=== PATIENT | male | born 1955 | race Caucasian/White ===

== ENCOUNTER 2021-01-23 09:24 | Inpatient (IN) | payer BC, SELFPAY ==
[~2021-01-23] VITALS: Ht 172.7 cm; Wt 124.7 kg
[2021-01-23 09:30] VITALS: BP 134/88
--- NOTE | 2021-01-23 09:40 | NUR ---
65 y/o M BIBA in front of yard c/o suicidal ideations. EMS states patient was in [place] having "a few beers" when he had a mechanical fall and struck his head against a brick wall. Patient presents with dry blood to left temporal region; denies any pain to this site. Denies head/neck/back pain, no spinal tenderness noted. GCS 15 patient denies hallucinations or auditory changes; states feeling depressed for "a few months with no plan to kill self." 5150 HOLD by Jane MEDELLIN for danger to self. Per hold, patient reports he "no longer wants to live anymore." Denies a plan. Pt states 2/10 to left ear; noted with partial avulsion to left ear. Seizure and SI precautions in place. PMH: Depression Meds: unknown Sx: cholecystectomy
--- NOTE | 2021-01-23 09:44 | NUR ---
Dr. Lomeli is evaluating patient at bedside
--- NOTE | 2021-01-23 09:48 | NUR ---
Unable to obtain urine sample at this time
--- NOTE | 2021-01-23 10:10 | NUR ---
Dr. Lomeli states to hold off on straight catheter. Urinal at bedside.
--- NOTE | 2021-01-23 10:11 | NUR ---
Blood sample collected, walked to lab and handed to CPT Frank.
--- NOTE | 2021-01-23 10:15 | NUR ---
TDAP consent form signed
--- NOTE | 2021-01-23 10:17 | NUR ---
[facility]
[2021-01-23 10:25] LABS: BASOPHILS # (AUTO) 0.1 K/uL (0.00-0.22); BASOPHILS % (AUTO) 0.6 % (0.0-2.0); HEMATOCRIT 41.8 % (36-52); HEMOGLOBIN 14.5 g/dL (12.0-18.0); LYMPHOCYTES # (AUTO) 0.7 K/uL (2.0-11.5); LYMPHOCYTES % (AUTO) 5.4 % (20.5-51.1); MEAN CORPUSCULAR HEMOGLOBIN 35 pg (27-31); MEAN CORPUSCULAR HGB CONC 35 g/dL (33-37); MEAN CORPUSCULAR VOLUME 101.4 fL (80-94); MONOCYTES % (AUTO) 7.2 % (1.7-9.3); NEUTROPHILS # (AUTO) 11.5 K/uL (1.8-7.7); NEUTROPHILS % (AUTO) 86.8 % (42.2-75.2); PLATELET COUNT (AUTO) 309 K/uL (140-450); RED BLOOD CELL COUNT(AUTO) 4.13 MIL/uL (4.20-6.10); RED CELL DISTRIBUTION WIDTH 14.3 % (11.6-13.7); WHITE BLOOD COUNT (AUTO) 13.3 K/uL (4.8-10.8)
--- NOTE | 2021-01-23 10:27 | NUR ---
Patient returned from CT by juan josé.
[2021-01-23 10:51] LABS: ANION GAP 14.6 (8-16); CREATININE 1.3 mg/dL (0.6-1.3); POTASSIUM 4.6 mmol/L (3.5-5.1)
--- NOTE | 2021-01-23 10:58 | NUR ---
PER ERMD PT FACE AND EARS WAS CLEANED VIA COMMISSIONING EDITOR.
[2021-01-23] MEDS ORDERED: LIDOCAINE MPF 1% 5 ML ONE (10:59)
[2021-01-23] MEDS ORDERED: LIDOCAINE MPF 1% 10 MG/ML VIAL INJ ONE (11:00)
--- NOTE | 2021-01-23 11:45 | NUR ---
Patient cleared for fluids per Dr. jennings. Pt given 2 water cups and encouraged to urinate. Urinal remains at bedside.
--- NOTE | 2021-01-23 13:36 | NUR ---
Patient resting in semi-fowlers with both eyes open. All pt needs met. No distress noted.
[2021-01-23 13:58] LABS: BARBITURATE, URINE NEGATIVE ng/ml (NEG <=200); BENZODIAZEPINE, URINE POSITIVE ng/mL (NEG <=200); CANNABINOID, URINE POSITIVE ng/mL (NEG <=50); COCAINE, URINE NEGATIVE ng/mL (NEG <=300); OPIATE, URINE NEGATIVE ng/mL (NEG <=2000); PHENCYCLIDINE SCREEN,URINE NEGATIVE ng/mL (NEG <=25)
--- NOTE | 2021-01-23 15:30 | NUR ---
Patient wheelchair assisted to restroom for BM.
--- NOTE | 2021-01-23 15:32 | NUR ---
Patient presented laying on the ground in the restroom by toilet. Patient states he slipped from toilet and landed on his rear. Denies any pain, denies falling, denies LOC/head/neck/back pain. Patient assisted back onto wheelchair
--- NOTE | 2021-01-23 15:35 | NUR ---
Patient wheelchair assisted back to bed and provided with diaper and chucks applied to bed. Side rails x 2 for pt safety. All pt needs met at this time.
--- NOTE | 2021-01-23 16:11 | NUR ---
Patient laying on R side with both eyes closed.
[2021-01-23] MEDS ORDERED: VENL37.55 PO (16:39)
--- NOTE | 2021-01-23 17:24 | NUR ---
Wound photos of L ear and above L eye taken and attached onto chart.
[2021-01-23] MEDS ORDERED: ACETAMINOPHEN 325 MG TAB ONE (17:39)
[2021-01-23] MEDS ORDERED: ACETAMINOPHEN 325 MG TAB PO ONE (17:40)
--- NOTE | 2021-01-23 17:41 | NUR ---
Pt states 4/[address] Martinez made aware and orders placed.
[2021-01-23] MEDS ORDERED: ACETAMINOPHEN 325 MG TAB PO PRN (17:45)
[2021-01-23] MEDS ORDERED: POTASSIUM CHLORIDE 10 MEQ TABER PO PRN (17:45)
[2021-01-23] MEDS ORDERED: MAGNESIUM OXIDE 400 MG TAB PO PRN (17:45)
[2021-01-23] MEDS ORDERED: MORPHINE SULFATE 2 MG/ML SYR IVP PRN (17:45)
[2021-01-23] MEDS ORDERED: HYDROcodone/APAP 5/325 MG 1 TAB TAB PO PRN (17:45)
[2021-01-23] MEDS ORDERED: SODIUM PHOS / POTASSIUM PHOS 1 PKT PDR PO PRN (17:45)
[2021-01-23] MEDS ORDERED: ONDANSETRON 4 MG/2 ML VIAL IM/IVP PRN (17:45)
[2021-01-23] MEDS ORDERED: DOCUSATE SODIUM 100 MG GELCAP PO PRN (17:45)
--- NOTE | 2021-01-23 18:05 | NUR ---
Dinner mealtray at bedside. Patient completing meal at this time.
--- NOTE | 2021-01-23 18:11 | NUR ---
Blood sample collected, handed to CPT Ami in lab
--- NOTE | 2021-01-23 18:17 | NUR ---
Patient on video call with psychiatrist.
--- NOTE | 2021-01-23 18:20 | NUR ---
Report given to ALVERTO Luna. Advised patient on iPad with Telepsych, ETA 15-20min.
--- NOTE | 2021-01-23 18:36 | NUR ---
RECEIVED REPORT FROM ED NURSE CELIA. AWAITING PT TRANSFER TO [facility].
[2021-01-23] MEDS: MULTIVITAMIN/MINERALS 1 TAB PO SCH (18:38)
[2021-01-23] MEDS: THIAMINE 100 MG TAB PO SCH (18:39)
[2021-01-23 18:40] LABS: MAGNESIUM 2.3 mg/dL (1.8-2.4); PHOSPHORUS 3.4 mg/dL (2.5-4.9)
[2021-01-23] MEDS: NACL 0.9% 1,000 ML IV SCH ×2 (18:42→22:55)
[2021-01-23] MEDS ORDERED: LORazepam 0.5 MG TAB PO STA (18:47)
[2021-01-23] MEDS ORDERED: LORazepam 0.5 MG TAB PO PRN (18:50)
--- NOTE | 2021-01-23 18:54 | NUR ---
PATIENT TRANSFERRED TO [facility]. PT STABLE. NO S/S OF DISTRESS. SITTER IN DOORWAY. PAINTING TRADES WORKER IN PLACE. IV FLUIDS RUNNING PER MD ORDERS. PATIENT EATING. ALL SAFETY MEASURES IN PLACE.
--- NOTE | 2021-01-23 18:55 | NUR ---
Patient will be admitted to care of Dr. Holcomb. Admited to Telemetry. Will go to room 109A. Belongings list completed. Report to ALVERTO Fuentes.
--- NOTE | 2021-01-23 19:35 | NUR ---
ENDORSED PATIENT TO LIBRARY CLERK TALKING BOOKS NURSE. PT STABLE. NO S/S OF DISTRESS. BREATHING SYMMETRICAL. CALL LIGHT IN REACH. ALL SAFETY MEASURES IN PLACE.
--- NOTE | 2021-01-23 19:36 | NUR ---
RECEIVED ENDORSEMENT FROM AM NURSE. PATIENT RESTING IN BED. NO ACUTE RESPIRATORY DISTRESS AT THIS TIME. WILL ADMIT TO TELE UNIT.
--- NOTE | 2021-01-23 20:00 | NUR ---
ADMITTED FROM ER TO TELEMETRY UNIT WITH CHIEF COMPLAINT OF S/P FALL AND SUICIDAL IDEATION. 65 Y/O Male & COOPERATIVE. AWAKE, ALERT & ORIENTED X2. RESPIRATIONS EVEN AND LABORED. LACERATION APPROXIMATELY 2CM ON LEFT TEMPORAL, INTACT, DRY, AND OPEN TO AIR. PART OF LEFT EAR MISSING WITH DRY BLOOD. PATIENT VERBALIZED INCIDENT HAPPENED A MONTH AGO BUT CANNOT REMEMBER WHAT HAPPENED. INQUIRED IF PATIENT HAS ANY SUICIDAL THOUGHTS. PATIENT VERBALIZED THAT HE HAS SUICIDAL THOUGHTS WITHOUT ANY ACTIVE PLANS. HEAD TO TOE ASSESSMENT DONE WITH CHARGE NURSE AL. PATIENT VERBALIZES HE IS ABLE TO WALK AT HOME, BUT VERBALIZES HE REQUIRES WHEELCHAIR AT THE HOSPITAL DUE TO BILATERAL LOWER EXTREMITY WEAKNESS AND VERBALIZES HE IS WOBBLY WHEN AMBULATING. PATIENT DENIES PAIN 0/10. SR ON TELE WITH INVERTED T. ORIENTED TO CALL LIGHT, BED, PHONE, TELEVISION, BATHROOM, SMOKING POLICY, VISITOR POLICY, PROCEDURES, ID BRACELET ON. BELONGINGS LIST CHECKED.
--- NOTE | 2021-01-23 22:00 | NUR ---
LAYING ON HIS RIGHT SIDE, SLEEPING BUT STILL ANSWERS QUESTIONS WHEN ASK BY NURSE.
[2021-01-24] VITALS: BP 98/51
--- NOTE | 2021-01-24 | NUR ---
ROUNDED ON PATIENT. OBTAINED SCHEDULED VITAL SIGNS. WITHIN NORMAL LIMITS. NO SIGNS AND SYMPTOMS OF ACUTE RESPIRATORY DISTRESS NOTED AT THIS TIME. ALL SAFETY MEASURES IN PLACE. CALL LIGHT WITHIN REACH. WILL CONTINUE TO MONITOR.
--- NOTE | 2021-01-24 01:11 | NUR ---
Patient's Plan of Care was discussed and reviewed with PSYCHOLOGISTS: SHAYY RODRIGUEZ
--- NOTE | 2021-01-24 02:00 | NUR ---
SLEEPING ON HIS LEFT SIDE, RESPIRATION EVEN AND UNLABORED. PUT ON WARM BLANKET.
[2021-01-24 04:00] VITALS: BP 132/64
--- NOTE | 2021-01-24 04:00 | NUR ---
OBTAINED SCHEDULED VITALS SIGNS. VITAL SIGNS WITHIN NORMAL LIMITS. CLEANED AND CHANGED PATIENT WITH MACHINE CEMENTER ASSISTANCE. NO SIGNS AND SYMPTOMS OF ACUTE RESPIRATORY DISTRESS NOTED AT THIS TIME. ALL SAFETY MEASURES IN PLACE. CALL LIGHT WITHIN REACH. WILL CONTINUE TO MONITOR.
[2021-01-24] MEDS: NACL 0.9% 1,000 ML IV SCH (05:05)
--- NOTE | 2021-01-24 06:00 | NUR ---
CHECKED ON PATIENT. PATIENT STABLE AND COMFORTABLE IN BED SLEEPING. NO SIGNS AND SYMPTOMS OF ACUTE RESPIRATORY DISTRESS NOTED AT THIS TIME. ALL SAFETY MEASURES IN PLACE. CALL LIGHT WITHIN REACH. WILL CONTINUE TO MONITOR.
--- NOTE | 2021-01-24 07:00 | NUR ---
ENDORSED TO MORNING NURSE FOR CONTINUITY OF CARE. PATIENT STABLE.
--- NOTE | 2021-01-24 07:40 | NUR ---
RECEIVED REPORT FROM PULP MAKING PLANT OPERATOR NURSE. IV FLUIDS RUNNING PER MD ORDERS. PT STABLE. NO S/S OF DISTRESS. BREATHING SYMMETRICAL. ALL SAFETY MEASURES IN PLACE.
[2021-01-24 08:10] LABS: BASOPHILS % (AUTO) 0.4 % (0.0-2.0); EOSINOPHILS % (AUTO) 0.6 % (0.0-4.0); HEMATOCRIT 36.6 % (36-52); HEMOGLOBIN 12.6 g/dL (12.0-18.0); LYMPHOCYTES % (AUTO) 16.9 % (20.5-51.1); MEAN CORPUSCULAR HEMOGLOBIN 35 pg (27-31); MEAN CORPUSCULAR HGB CONC 34 g/dL (33-37); MEAN CORPUSCULAR VOLUME 102.7 fL (80-94); MONOCYTES # (AUTO) 0.8 K/uL (0.8-1.0); NEUTROPHILS % (AUTO) 69.1 % (42.2-75.2); PLATELET COUNT (AUTO) 235 K/uL (140-450); RED BLOOD CELL COUNT(AUTO) 3.56 MIL/uL (4.20-6.10); RED CELL DISTRIBUTION WIDTH 14.2 % (11.6-13.7); WHITE BLOOD COUNT (AUTO) 5.8 K/uL (4.8-10.8)
[2021-01-24] MEDS: MULTIVITAMIN/MINERALS 1 TAB PO SCH (08:16)
[2021-01-24] MEDS: THIAMINE 100 MG TAB PO SCH (08:16)
[2021-01-24] MEDS: PANTOPRAZOLE 40 MG INJ VIAL IVP SCH (08:16)
[2021-01-24] MEDS ORDERED: CRUSHER, PILL MC ONE (08:18)
[2021-01-24] MEDS: ESCITALOPRAM 20 MG TAB PO SCH (08:20)
[2021-01-24 08:36] LABS: ALBUMIN 2.5 g/dL (3.4-5.0); ANION GAP 11.8 (8-16); CARBON DIOXIDE 28.5 mmol/L (21-32); POTASSIUM 3.3 mmol/L (3.5-5.1); TOTAL BILIRUBIN 0.8 mg/dL (0.0-1.0)
--- NOTE | 2021-01-24 09:32 | NUR ---
PT LAB WORK REPORTED K 3.3, PT RECEIVED MEDICATION PER MD ORDERS. EDUCATED PT ON MEDICATION GIVEN. PT VERBALIZED UNDERSTANDING. SITTER IN DOOR WAY. ALL SAFETY MEASURES IN PLACE.
--- NOTE | 2021-01-24 10:22 | NUR ---
PT STATED "FEELING LIKE IM HALLUCINATING" IN REFERENCE TO BREAKFAST AND UTENSILS PROVIDING. REORIENTED AND EDUCATED PATIENT ON [place]AX[place] AND HAND EYE COORDINATION. PROVIDED PT WITH SPOON IN HAND. WILL CONTINUE TO MONITOR PT. PT DENIES SI. SITTER IN DOORWAY. ALL SAFETY MEASURES IN PLACE.
--- NOTE | 2021-01-24 11:58 | NUR ---
PT COMPLETED TELEPSYCH. PT WAS MEDICALLY CLEARED BY MD. REQUEST FOR INPATIENT PSYCH TRANSFER PER PSYCH CONSULT RECEIVED. PT STABLE. NO S/S OF DISTRESS. BREATHING SYMMETRICAL. SITTER AT DOOR WAY. ALL SAFETY MEASURE IN PLACE.
[2021-01-24 12:03] VITALS: BP 96/60
--- NOTE | 2021-01-24 13:35 | NUR ---
SPOKE TO ADMITTING. CONFIRMED PATIENT DEMOGRAPHICS. ADDED SISTER ELOY NEXT OF KIN PER PT REQUEST. PT CALLED ELOY AT [phone]. NO ANSWER BY SISTER, ADMITTING TO REACH OUT TO FAMILY.
--- NOTE | 2021-01-24 15:58 | NUR ---
SPOKE TO PT SISTER ELOY AT [phone]. PT WOULD LIKE SISTER TO HAVE ALL INFORMATION REGARDING CARE. PT GAVE SISTER PERMISSION TO STUDENT ADMISSIONS CLERK KEYS FROM PERSONAL BELONGINGS IF SECURITY IS IN POSSESSION. SISTER IS AWARE OF CURRENT PLAN TO TRANSFER PT TO INPATIENT PSYCH FACILITY. SISTER ASKED TO BE UPDATED ABOUT DC BEFORE PT IS MOVED.
[2021-01-24 16:00] VITALS: BP 114/71
--- NOTE | 2021-01-24 18:16 | NUR ---
IV INFILTRATED RAC. REMOVED AND INSERTED NEW IV ON LAC. IV INTACT AND PATENT INFUSING FLUIDS WELL.
--- NOTE | 2021-01-24 19:15 | NUR ---
ENDORSED PT TO PACKING INSPECTOR NURSE. PT STABLE. NO S/S OF DISTRESS. BREATHING SYMMETRICAL. IV FLUIDS RUNNING PER MD ORDERS. SITTER AT BEDSIDE. CALL LIGHT IN REACH. ALL SAFETY MEASURES IN PLACE. Addendum: 01/24/21 at 1936 by Cheryl Acevedo RN RN NO CALL LIGHT. PATIENT HAS SITTER.
--- NOTE | 2021-01-24 19:15 | NUR ---
RECD. RESTING IN BED, A/OX2. REORIENTED TO HOSPITAL SETTING. RESPIRATION EVEN AND UNLABORED. IV OF NS INFUSING AT 100 ML/HR LEFT AC G20. WHEN ASKED IF HE HAS THOUGHTS OF HURTING SELF OR OTHERS, VERBALIZED NONE BUT STATED HE IS DEPRESSED. ORIENTED ON THE PLAN TRANSFER TO PSYCHE FACILITY, ENCOURAGED TO BE PATIENT AND JUST WAIT TILL THERE WILL BE A VACANCY FOR HIM. AGREED, VERBALIZED UNDERSTANDING. ON 1:1 SITTER MONITORING PATIENT FOR SAFETY. DENIES PAIN 0/10.
[2021-01-24 20:00] VITALS: BP 122/66
--- NOTE | 2021-01-24 21:30 | NUR ---
GIVEN SNACK FOR THE NIGHT AND WATER, TEACHINGS GIVEN ON THE IMPORTANCE OF HYDRATION. ENCOURAGED TO INCREASE FLUID INTAKE.
[2021-01-25] VITALS: BP 111/69
--- NOTE | 2021-01-25 00:30 | NUR ---
SLEEPING ON HIS RIGHT SIDE, RESPIRATION EVEN AND UNALABORED.
--- NOTE | 2021-01-25 01:00 | NUR ---
USED THE URINAL ABLE TO VOID MODERATE AMOUNT OF CLEAR YELLOW URINE.
--- NOTE | 2021-01-25 03:00 | NUR ---
VOIDED IN THE URINAL BUT BUT SOME AMOUNT WENT TO THE FLOOR.
[2021-01-25] MEDS: NACL 0.9% 1,000 ML IV SCH ×3 (03:09→20:48)
[2021-01-25 04:00] VITALS: BP 110/65
--- NOTE | 2021-01-25 05:00 | NUR ---
STILL SLEEPING COMFORTABLY ON HIS RIGHT SIDE.
--- NOTE | 2021-01-25 06:36 | NUR ---
ABLE TO SLEEP WELL DURING THE NIGHT. NO SIGNS OF AGITATION OR UNUSUAL BEHAVIOR NOTED.
[2021-01-25 07:03] LABS: BASOPHILS % (AUTO) 0.9 % (0.0-2.0); EOSINOPHILS # (AUTO) 0.1 K/uL (0-0.4); EOSINOPHILS % (AUTO) 1.3 % (0.0-4.0); HEMATOCRIT 36.7 % (36-52); HEMOGLOBIN 12.7 g/dL (12.0-18.0); LYMPHOCYTES # (AUTO) 0.9 K/uL (2.0-11.5); LYMPHOCYTES % (AUTO) 18.7 % (20.5-51.1); MEAN CORPUSCULAR HEMOGLOBIN 35 pg (27-31); MEAN CORPUSCULAR HGB CONC 35 g/dL (33-37); MEAN CORPUSCULAR VOLUME 101.6 fL (80-94); MONOCYTES # (AUTO) 0.6 K/uL (0.8-1.0); MONOCYTES % (AUTO) 12.5 % (1.7-9.3); NEUTROPHILS # (AUTO) 3.2 K/uL (1.8-7.7); NEUTROPHILS % (AUTO) 66.6 % (42.2-75.2); PLATELET COUNT (AUTO) 214 K/uL (140-450); RED BLOOD CELL COUNT(AUTO) 3.61 MIL/uL (4.20-6.10); RED CELL DISTRIBUTION WIDTH 14.3 % (11.6-13.7); WHITE BLOOD COUNT (AUTO) 4.8 K/uL (4.8-10.8)
[2021-01-25 07:20] LABS: ANION GAP 13.2 (8-16); CARBON DIOXIDE 26.4 mmol/L (21-32); CREATININE 0.9 mg/dL (0.6-1.3); POTASSIUM 3.6 mmol/L (3.5-5.1)
--- NOTE | 2021-01-25 07:31 | NUR ---
Patient's Plan of Care was discussed and reviewed with SENIOR CORE JAVA DEVELOPER: SHAYY RODRIGUEZ
--- NOTE | 2021-01-25 07:40 | NUR ---
PATIENT HAS BEEN SCREENED AND CATEGORIZED LOW NUTRITION RISK. PATIENT WILL BE SEEN WITHIN 7 DAYS OF ADMISSION. 01/30/[address]
--- NOTE | 2021-01-25 07:55 | NUR ---
RECEIVED REPORT FROM MVA REACTOR OPERATOR HEAD NURSE. IV FLUIDS RUNNING PER MD ORDERS. PT STABLE. NO S/S OF DISTRESS. BREATHING SYMMETRICAL. ALL SAFETY MEASURES IN PLACE. CALLS LIGHT WITHIN REACH
[2021-01-25 08:00] VITALS: BP 136/78
[2021-01-25] MEDS ORDERED: ATI.5 PO (08:30)
[2021-01-25] MEDS ORDERED: THIA-34 PO (08:30)
[2021-01-25] MEDS ORDERED: ESCI20TA49 PO (08:30)
[2021-01-25] MEDS ORDERED: MULT-2086 PO (08:30)
[2021-01-25] MEDS ORDERED: FOLI1TAB90 PO (08:30)
[2021-01-25] MEDS: FOLIC ACID 1 MG TAB PO SCH (09:09)
[2021-01-25] MEDS: PANTOPRAZOLE 40 MG INJ VIAL IVP SCH (09:10)
[2021-01-25] MEDS: ESCITALOPRAM 20 MG TAB PO SCH (09:10)
[2021-01-25] MEDS: MULTIVITAMIN/MINERALS 1 TAB PO SCH (09:10)
[2021-01-25] MEDS: THIAMINE 100 MG TAB PO SCH (09:10)
[2021-01-25] MEDS ORDERED: CRUSHER, PILL MC ONE (09:12)
--- NOTE | 2021-01-25 10:00 | NUR ---
PT IN BED NO COMPLAINS NO SOD NOTED, PT ATE BREAKFAST GOT MORNING MEDICATION TOLERATED WELL, ALL SAFETY MEASURES ON PLACE, CALLS LIGHT WITHIN REACH.
--- NOTE | 2021-01-25 12:15 | NUR ---
PT IN BED NO COMPLAINS NO SOD NOTED, SITTER WATCHING THE PATIENT, ALL SAFETY MEASURES ON PLACE, CALLS LIGHT WITHIN REACH.
--- NOTE | 2021-01-25 14:19 | NUR ---
DC PLANNING SW CALL [facility] AT SPOKE TO PHILLY AND FAXED HER PATIENT'S INFORMATION AND CLINICALS AT WITH CONFIRMATION COMPLETED AT ABOUT 13:57. SW WILL FOLLOW UP NEEDED. Addendum: 01/25/21 at 1751 by Karissa Escudero CM PATIENT IS A 65-YEAR-OLD MALE ADMITTED ON A 5150 HOLD ON 01/23/21. DUE TO A REPORT OF PATIENT BEEN WONDERING AROUND AN APARTMENT COMPLEX AND FINALLY FOUND CONFUSED WITH BLOOD ON HIS FOREHEAD. PATIENT ULTIMATELY WAS BROUGHT BY [facility] DUE TO STATING TO THEM THAT HE WAS HAVING SUICIDAL IDEATIONS. SW MET WITH PATIENT TO DISCUSS AND GATHER HIS COLLATERAL INFORMATION AND PROVIDED HIM WITH SOME RESOURCES FOR MENTAL HEALTH SERVICES. PATIENT AGREED TO FOLLOW UP AND DISCUSS THE IMPORTANCE OF HIS SAFETY AND THE PROCESS OF PSYCH EVALUATION AND REFERRAL TO A PSYCHIATRIC HOSPITAL FOR FURTHER ASSISTANCE. PER PATIENT HE HAS BEEN REALLY DEPRESSED FOR SOMETIME UNTIL RECENTLY ABOUT 2 DAYS AGO STARTED TO HEAR VOICES AND BEGAN HAVING SUICIDAL THOUGHTS. "JUST WANTING TO ". PATIENT WAS AWAKE AND ALERT AT THE TIME OF VISIT WITH SW HOWEVER; WAS CONFUSED WITH SOME QUESTIONS AND UNABLE TO REMEMBER SOME OF HIS OWN INFORMATION;SUCH PCP AND MEDICAL SERVICES RECEIVED IN THE PAST. PATIENT HOWEVER; WAS ABLE TO REMEMBER HIS ADDRESS AND ALSO STATED NOT HAVING ADVANCE DIRECTIVES AND DECLINED ANY INFORMATION PACKET PROVIDED BY THESE SW. PER PATIENT HE HAS A PCP WITH WHO HE HAS BEEN GETTING HIS MEDICATIONS FOR ABOUT 10 YEARS, HOWEVER; PATIENT WAS UNABLE TO REMEMBER HIS NAME OR LOCATION. PATIENT STATED THAT HE HAS NO ISSUES TAKING OR GETTING HER MEDICATIONS; HOWEVER REPORTED THAT HE HAS RUN OUT OF HIS MEDICATIONS FOR ABOUT A WEEK. PER PATIENT HE IS INDEPENDENT AND ABLE TO MOVE ON HIS OWN AND HAS NO NEED FOR DME. PATIENT STATED HAVING CLOSE FAMILY AND STATED THAT HE HAS TWO SISTERS BUT THE CLOSES TO HIM IS JAMIE ANTOINE WHO LIVES IN [place] BUT REPORTED THAT THEY ARE NOT VERY CLOSE DUE TO FAMILY CONFLICT IN THE PAST AND HIS HX OF SUBSTANCE ABUSE (DRUG OF CHOICE ALCOHOL). PATIENT STATED THAT WHEN HE IS READY TO DISCHARGE HE CAN ASK HIS SISTER TO PICK HIM UP AND IF SHE IS NOT ABLE HE PLANS ON GETTING HOME ON HIS OWN OR MAY BE CALL A CAB) SW INFORMED PATIENT THAT HE WILL CONTINUE TO BE EVALUATED AND WHEN CLEAR HE WILL BE DISCHARGE. PATIENT AGREED AND THANKED THESE CREDIT CARD INTERVIEWER. SW WILL FOLLOW UP NEEDED.
--- NOTE | 2021-01-25 14:45 | NUR ---
PT IN BED NO COMPLAINS NO SOD NOTED, , ALL SAFETY MEASURES ON PLACE, CALLS LIGHT WITHIN REACH.
--- NOTE | 2021-01-25 16:45 | NUR ---
T SITTING ON BED NO COMPLAINS, NO SOD NOTED, HIS SISTER CALLED TO TALK TO HER BROTHER AND ASKED ABOUT KEYS, THE PT HAVE THE KEYS THE SISTER STATE THAT SHE IS COMING TO FIELD MECHANIC/SITE LEAD THE KEYS ALL SAFETY MEASURES ON PLACE CALLS LIGHT WITHIN REACH
--- NOTE | 2021-01-25 19:00 | NUR ---
FULL BEDSIDE REPORT GIVEN TO MILKER MACHINE NURSE
--- NOTE | 2021-01-25 19:00 | NUR ---
PATIENT RECEIVED IN BED RESTING, A/OX2. REORIENTED TO HOSPITAL SETTING. RESPIRATIONS EVEN AND UNLABORED. IV OF NS INFUSING AT 100 ML/HR LEFT AC G20. PATIENT EDUCATED TO RN PLAN OF CARE, FALL AND SAFETY PRECAUTIONARY MEASURES. DISCUSSED MEDICATION ACTIONS, PURPOSE AND SIDE EFFECT. PATIENT RECEPTIVE TO RN PLAN OF CARE.PATIENT VERBALIZED UNDERSTANDING WITH 1:1 SITTER MONITORING PATIENT FOR SAFETY. VSS.
[2021-01-25 20:00] VITALS: BP 126/72
--- NOTE | 2021-01-26 00:26 | NUR ---
At this time there are no beds still available will continue to look for placement .
[2021-01-26 04:00] VITALS: BP 118/78
[2021-01-26 07:13] LABS: BASOPHILS # (AUTO) 0.1 K/uL (0.00-0.22); BASOPHILS % (AUTO) 1.2 % (0.0-2.0); EOSINOPHILS # (AUTO) 0.1 K/uL (0-0.4); EOSINOPHILS % (AUTO) 1.8 % (0.0-4.0); HEMATOCRIT 34.2 % (36-52); LYMPHOCYTES % (AUTO) 21.7 % (20.5-51.1); MEAN CORPUSCULAR HEMOGLOBIN 35 pg (27-31); MEAN CORPUSCULAR HGB CONC 35 g/dL (33-37); MONOCYTES # (AUTO) 0.6 K/uL (0.8-1.0); MONOCYTES % (AUTO) 13.4 % (1.7-9.3); NEUTROPHILS # (AUTO) 2.9 K/uL (1.8-7.7); NEUTROPHILS % (AUTO) 61.9 % (42.2-75.2); PLATELET COUNT (AUTO) 199 K/uL (140-450); RED BLOOD CELL COUNT(AUTO) 3.42 MIL/uL (4.20-6.10); RED CELL DISTRIBUTION WIDTH 14.2 % (11.6-13.7); WHITE BLOOD COUNT (AUTO) 4.7 K/uL (4.8-10.8)
[2021-01-26 07:21] LABS: ANION GAP 12.5 (8-16); CARBON DIOXIDE 25.9 mmol/L (21-32); POTASSIUM 3.4 mmol/L (3.5-5.1)
--- NOTE | 2021-01-26 07:58 | NUR ---
RECEIVED REPORT FROM NIGHT NURSE PT IS ALERT ORIENTED X 3 VERBALLY RESPONSIVE, SLEEPING IN THE BED AT THE MOMENT. SINUS RHYTHM, IV ACCESS ON L AC 22 GAUGE NS @ 60 ML/HR. SKIN IS INTACT. PT HAS 5150 HOLD SITTER WITH THE PT.POSSIBLE TRANSFERRED TO PSYCH FACILITY.
[2021-01-26] MEDS: PANTOPRAZOLE 40 MG INJ VIAL IVP SCH (09:08)
[2021-01-26] MEDS: FOLIC ACID 1 MG TAB PO SCH (09:09)
[2021-01-26] MEDS: MULTIVITAMIN/MINERALS 1 TAB PO SCH (09:09)
[2021-01-26] MEDS: THIAMINE 100 MG TAB PO SCH (09:10)
[2021-01-26] MEDS: ESCITALOPRAM 20 MG TAB PO SCH (09:10)
[2021-01-26 12:52] VITALS: BP 125/87
[2021-01-26] MEDS: NACL 0.9% 1,000 ML IV SCH (14:18)
--- NOTE | 2021-01-26 15:00 | NUR ---
DC PLANNING SW MET WITH [place] [employer] OFFICER Se AZUL WHO STATED THAT AFTER ASSESSING PATIENT FOR 5150 HOLD HE HAS DETERMINED THAT PATIENT IS NOT ON HOLD ANYMORE, DUE TO NOT MEETING CRITERIA FOR ANOTHER 5150 HOLD SINCE PATIENT IS BEEN IN THE HOSPITAL FOR ABOUT 72 HOURS AND DURING HIS CONVERSATION AND ASSESSMENT PATIENT SEEM CALM, AND DENYING ANY DTS/DTO OR ANY SUICIDAL IDEATIONS. PT. CLEAR TO DISCHARGE TODAY. GLASSINE MACHINE TENDER THANKED PD. OFFICER JORGE ALBERTO FOR NOTIFICATION. PATIENT, SISTER JAMIE ANTOINE ARRIVED TO [facility] AT ABOUT 16:00 PM AND REQUESTED TO SPEAK TO THESE TECHNOLOGY AND ENGINEERING TEACHER IN REGARDS TO PATIENT DISCHARGE AND AFTER CARE. SW MEET WITH JAMIE ANTOINE, SHE PROVIDED WITH PATIENT'S INFORMATION IN REGARDS INSURANCE AND PENITENTIARY PAPER WORK THAT SHE SOIL SCIENTIST FROM PATIENT'S APARTMENT TO BRING TO THE HOSPITAL AND PROVIDE FOR COLLATERAL INF. PATIENT REQUESTED TO DO. JAMIE ALSO STATED THAT SHE HAS BEEN TALKING PATIENT DAILY AND DISCUSS HIS NEED FOR RECOVERY AND FOLLOW UP WITH MENTAL HEALTH SERVICES, WELL SOME FINANCIAL ISSUES HE HAS TO CARE WHEN HE IS CD FROM [facility]. SW DISCUSS AND EXPLAINED TO PATIENT'S SISTER THAT THESE TECHNOLOGY AND ENGINEERING TEACHER HAS ALREADY MET WITH PATIENT AND PROVIDED HIM WITH SOME RESOURCES AND ALSO PROVIDED JAMIE WITH RESOURCES FOR MENTAL HEALTH, SUBSTANCE ABUSE, ADVANCE DIRECTIVES PACKET, AND EMERGENCY SERVICES THAT CAN BE HELPFUL FOR HER TO HAVE SINCE SHE WILL BE ASSISTING PATIENT WITH FOLLOWING UP WITH SERVICES AFTER HIS DC. HANSEL EXPLAINED TO JAMIE THE PROCESS OF ASSESSMENTS AND 5150 HOLD. ALSO INFORMED HER THAT PATIENT WILL BE DISCHARGE TODAY HE IS NO LONGER MEETING CRITERIA FOR A HOLD. PER PATIENT'S SISTER SHE WAS HAPPY TO GET ALL INFORMATION PROVIDED BY HANSEL AND WILL CONTINUE ASSISTING PATIENT HANDLING HIS MENTAL HEALTH CARE AND NEEDS AFTER HIS CD.
--- NOTE | 2021-01-26 15:44 | NUR ---
CALLED [facility] AND OFFICER Se AZUL CAME, HE SAID PATIENT IS NOT ON HOLD ANYMORE, NOT ON 5150 CRITERIA. NOTIFIED ORDAINED MINISTER KARL AND SPOKE TO THE OFFICER.
--- NOTE | 2021-01-26 18:53 | NUR ---
PT DISCHARGED HOME IN STABLE CONDITION. VITALS WERE WITH IN NORMAL RANGE, PT DENIES PAIN AND DISCOMFORT. DISCONNECTED IV ACCES, REMOVE ID BAND AND ESCORTED PT TO THE FRONT LOBBY VIA WHEEL CHAIR, ASSISTED HIM TO GET IN TAXI. ALL PT BELONGING WERE GIVEN AT THE TIME OF DISCHARGE.
--- NOTE | 2021-01-27 23:20 | NUR ---
Aware patient is awaiting telepsych will continue to monitor for outcome
== END 2021-01-26 18:55 | disposition home or self-care (01) | DRG 579 ==
LOC: MED 09:24 → MTU 17:52
PROVIDERS: ADMIT Hospitalist; ATTEND Hospitalist
PROC: 0WQ0XZZ Repair Head, External Approach (ICD-10-PCS; principal; 2021-01-23)
DX: S01.81XA Laceration without foreign body of other part of head, initial encounter (principal); G92.9 Unspecified toxic encephalopathy; E43 Unspecified severe protein-calorie malnutrition; R45.851 Suicidal ideations; Z68.41 Body mass index [BMI] 40.0-44.9, adult; F10.129 Alcohol abuse with intoxication, unspecified; Y90.9 Presence of alcohol in blood, level not specified; W18.39XA Other fall on same level, initial encounter; F32.A Depression, unspecified; F12.90 Cannabis use, unspecified, uncomplicated; E87.6 Hypokalemia; Z20.822 Contact with and (suspected) exposure to COVID-19; Z90.49 Acquired absence of other specified parts of digestive tract; Y93.89 Activity, other specified; Y92.89 Other specified places as the place of occurrence of the external cause; Y99.8 Other external cause status
CPT/HCPCS: 36415; 70450; 80048; 80053; 80305; 82140; 83735; 84100; 85025; 87081; 90471; 90715; 93880; 97112; 97116; 97163-GP; 97530; 99285; C9113; G0482; J2001; Q0092; U0003